=== PATIENT | female | born 1965 | race Caucasian/White ===

== ENCOUNTER 2019-08-10 05:40 | Day surgery (SDC) | payer BC ==
[~2019-08-10] VITALS: Ht 170.2 cm; Wt 64.0 kg
--- NOTE | ~2019-08-10 | OR ---
[facility] [address], [place] [address] Draft DATE OF OPERATION: 08/10/2019 SURGEON: Jl Pierce MD PREOPERATIVE DIAGNOSIS: Medial meniscus tear, right knee. POSTOPERATIVE DIAGNOSIS: Medial meniscus tear, right knee. PROCEDURE PERFORMED: Right knee arthroscopy with partial medial meniscectomy. TOE TRIMMER: None. ANESTHESIA: General. BLOOD LOSS: Minimal. 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 She developed pain and instability in her right knee. MRI was consistent with a fairly significant unstable medial meniscus tear. Risks, benefits, and alternatives of operative treatment were discussed with her and she elected to proceed. DESCRIPTION OF PROCEDURE: Once consent was obtained, she was taken to the operating room. After adequate anesthesia, she was placed on operating room table. All downside pressure points were well padded. The left leg was flexed, abducted, and externally rotated on a well-padded leg townsend. The right was placed in well-padded proximal thigh leg townsend and the portal sites were pre-injected using 0.25% Marcaine with epinephrine under alcohol prep. The leg was then prepped and draped in a standard sterile fashion. Standard inferior lateral and superolateral portals were made, and the scope was introduced. ARTHROSCOPIC FINDINGS: The patellofemoral joint was intact. There was moderate synovitis with little bit of friability throughout. Medial and lateral gutters were clear. There were osteophytes PATIENT NAME: ROSALINA DIGGS SHREYAS OPERATIVE REPORT DATE OF : 61 REPORT #: [id number] PHYSICIAN: JL PIERCE MD PCP: GAMALIEL PEMBERTON MD REPORT IS CONFIDENTIAL AND NOT TO BE RELEASED WITHOUT AUTHORIZATION [facility] [address], [place] [address] Draft on both sides. ACL and PCL were intact. A medial compartment showed a complex tear with horizontal and radial components starting at the mid body extending posteriorly. The chondral surfaces were grade 1 soft, but no significant chondromalacia. 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 Grade 2 changes to the tibial side. There was a little bit of minimal fraying to the lateral meniscus, but no denisa tears. DESCRIPTION OF OPERATION: A standard inferomedial portal was made and the straight biters were used to trim the meniscus tear back to stable rim. The debris was then evacuated using the shaver and the meniscus was smoothed, and beveled out anteriorly. Once this was accomplished, the scope was withdrawn. Portals were closed with 3-0 nylon. The knee was injected with 60 mg of Toradol at the end of the case. The wounds were dressed with Adaptic, 4 x 8, and Jeremy wrap. She tolerated the procedure well. All sponge, needle, and instrument counts were correct. Jl Pierce MD BA/ADELIA /[id number] Copies: ~ PATIENT NAME: ROSALINA DIGGS OPERATIVE REPORT DATE OF : 61 REPORT #: [id number] PHYSICIAN: JL PIERCE MD PCP: GAMALIEL PEMBERTON MD REPORT IS CONFIDENTIAL AND NOT TO BE RELEASED WITHOUT AUTHORIZATION
[2019-08-10] MEDS ORDERED: HYDROCODON-ACE1 EA11 PO (08:18)
[2019-08-10] MEDS ORDERED: CELECOXIB200 MG PO (08:18)
--- NOTE | 2019-08-10 08:31 | NUR ---
08/10/19 0831 Eloina Wild 0816 PT ARRIVED TO PACU WITH ORAL AIRWAY IN PLACE AND ON 10L VIA MASK, PT MOVING ARMS, RN TRYING TO REOREINTE PT TO PACU, PT NOT OPENING EYES AND UNABLE TO FOLLOW COMMANDS. RESP EVEN AND UNLABORED. 0818 PT FOLLOWING COMMANDS AND ORAL AIRWAY REMOVED. PT REACHING FOR MASK. PT BACK TO SLEEP. 0822 PT WOKE AND DENIES NAUSEA AND PAIN. PT REQUESTING WATER. PLAN OF CARE DISCUSSED. 0831 PT SITTING UP IN BED AND ICE PLACED ON RIGHT KNEE AND PILLOW USED TO ELEVATE KNEE. PT SIPPING WATER.
== END 2019-08-10 09:55 | disposition home or self-care (01) ==
LOC: OPS 05:40 → DS 05:40 → OPS 06:45
PROVIDERS: Specialist
PROC: 0SBC4ZZ Excision of Right Knee Joint, Percutaneous Endoscopic Approach (ICD-10-PCS; principal; 2019-08-10 09:30)
DX: S83.231A Complex tear of medial meniscus, current injury, right knee, initial encounter (principal); M94.261 Chondromalacia, right knee; X50.0XXA Overexertion from strenuous movement or load, initial encounter
CPT/HCPCS: J0690; J1100; J1885; J2250; J2405; J2704; J2765; J3010; J7120

== ENCOUNTER 2024-09-11 06:58 | Emergency (ER) | payer OTHER ==
[~2024-09-11] VITALS: Ht 170.2 cm; Wt 68.6 kg
[~2024-09-11 06:58] MED LIST: CELECOXIB200 MG PO; HYDROCODON-ACE1 EA11 PO
[2024-09-11] MEDS ORDERED: BETAMETHASONE D50 GM (07:25)
[2024-09-11 07:26] LABS: BILIRUBIN, URINE NEGATIVE (negative); BLOOD/HGB, URINE MODERATE (Negative); KETONE, URINE NEGATIVE (Negative); LEUK ESTERASE, URINE TRACE (negative); NITRITE, URINE NEGATIVE (negative); PH, URINE 5.5 (5-7)
[2024-09-11] MEDS ORDERED: LIDOCAINE HCL 4% 1 EACH PATCH TD ONE (07:30)
[2024-09-11 07:40] LABS: BACTERIA, URINE 1+ /hpf (negative); CASTS, URINE NONE SEEN \\lpf; COLLECTION TYPE, URINE CLEAN CATCH; CRYSTALS, URINE NONE SEEN (0-1+); REFLEX CULTURE, URINE No (No)
[2024-09-11 09:20] VITALS: BP 126/83
== END 2024-09-11 09:20 | disposition home or self-care (01) ==
LOC: ED 06:58
PROVIDERS: Emergency Medicine
DX: M54.50 Low back pain, unspecified (principal)
CPT/HCPCS: 76775; 81001; 99284; A9270